=== PATIENT | female | born 1955 | race Caucasian/White ===

== ENCOUNTER 2021-06-07 14:48 | Emergency (ER) | payer MEDICARE, SELFPAY ==
[2021-06-07 15:11] VITALS: BP 151/91; PULSE 88; RESP 18; TEMP 36.9; O2SAT 95; BMI 41.8
--- NOTE | 2021-06-07 15:17 | XRR_ITS ---
PROCEDURE INFORMATION: Exam: XR Chest Exam date and time: 06/07/2021 3:17 PM Age: 66 years old Clinical indication: Cough; Additional info: Cough for 3 weeks TECHNIQUE: Imaging protocol: XR of the chest. Views: 2 views. Total images: 2 COMPARISON: No relevant prior studies available. FINDINGS: Lungs: No visible active interstitial or alveolar airspace disease. Pleural spaces: Unremarkable. No pleural effusion. No pneumothorax. Heart/Mediastinum: Cardiac structures and configuration within normal limits for age. Bones/joints: Unremarkable. Soft tissues: Heavy body habitus. XR/XR chest 2V* [id number] IMPRESSION: Nonacute.
[2021-06-07 16:04] VITALS: BP 117/76; PULSE 84; RESP 19; O2SAT 96
--- NOTE | 2021-06-07 16:26 | W.ED.SOB ---
HPI - SOB/Dyspnea General: Chief Complaint: Upper Respiratory Infection Stated Complaint: Cough that is worsening Time Seen by Provider: 06/07/21 16:25 History of Present Illness: HPI Narrative: Ms. Cameron is a 58-year-old lady with history of hypertension who presents emergency department cough and generalized malaise. She is visiting the area from out of town and staying with family. She has been in the area for approximately 5 weeks. About 3 weeks ago she has had gradual onset cough associated with minimal generalized malaise. Over the past 3 weeks this dry cough has persisted and become more frequent. She does have new smoke exposure. Intensity of cough is now moderate. The course has been worsening. There are no specific activities that make her cough worse. No other specific changes in health, associated symptoms, exacerbating, or alleviating factors identified. Review of Systems General: Reports: 10 or more systems reviewed and unremarkable except in HPI and below Physical Exam Narrative: EXAM NARRATIVE: GENERAL/CONSTITUTIONAL - well-appearing. No acute distress. Eyes - PERRL, no conjunctival injection ENMT - Atraumatic external nose and ears. Moist mucous membranes NECK - supple. trachea midline CARDIOVASCULAR - regular rate and rhythm. Peripheral pulses 2+ and equal RESPIRATORY -clear to auscultation bilaterally. No retractions or accessory muscle use. ABDOMEN/GI - Nontender, Nondistended. MSK - Extremities without obvious deformity or tenderness to palpation SKIN - Warm, Dry NEURO - alert and appropriately oriented. strength and sensation intact. Moves all extremities equally. PSYCH - Appropriate mood and affect Course ED course: - Patient was seen and evaluated by me at bedside - Patient placed on cardiac monitors, IV access obtained - Initial evaluation notable for no acute distress, nontoxic appearance. - Labs notable for no leukocytosis, mildly elevated creatinine with unclear baseline discussed with patient - Imaging notable for no lobar consolidation - Upon serial reexamination after treatment the patient was similar - Based on patient history, evaluation, labs, and imaging as interpreted the most likely cause of the patient's condition is cough, given duration of worsening may be atypical bacterial infection versus environmental exposure - The results of ED evaluation were discussed with the patient including prescriptions and/or symptomatic cares (if applicable) including appropriate and responsible use, followup plan, and return precautions. The patient verbalized understanding and felt safe for discharge. - Patient discharged in satisfactory condition. Vital Signs: Vital signs: Vital Signs Temperature 98.4 F 06/07/21 15:11 Pulse Rate 77 06/07/21 19:02 Respiratory Rate 17 06/07/21 19:02 Blood Pressure 118/73 06/07/21 19:02 Pulse Oximetry 96 06/07/21 19:02 MDM - SOB/Dyspnea Medical Records: Attestation: I reviewed the patient's medical records. Lab Data: Attestation: I reviewed the patient's lab results. Labs: Lab Results 06/07/21 06/07/21 06/07/21 16:59 16:59 16:59 WBC 4.9 10^3/uL 10^3/ uL (4.0-10.0) RBC 4.64 10^6/uL 10^6 /uL (4.1-5.3) Hgb 14.6 g/dL g/dL (11.5-15.3) Hct 44.2 % % (37.0-47.0) MCV 95.3 fl fl (81-99) MCH 31.5 pg pg (28.0-34.0) MCHC 33.0 g/dL g/dL (30.0-36.0) RDW 12.7 % % (12.1-15.1) Plt Count 197 10^3/cmm 10^3 /cmm (130-400) MPV 10.1 fL fL (7.4-10.4) Neut % (Auto) 58.0 % % Lymph % (Auto) 29.9 % % [place] % (Auto) 7.6 % % Eos % (Auto) 3.5 % % Baso % (Auto) 0.8 % % Neut # (Auto) 2.84 10^3/uL 10^3 /uL (1.8-7.7) Lymph # (Auto) 1.5 10^3/uL 10^3/ uL (0.8-4.8) [place] # (Auto) 0.4 10^3/uL 10^3/ uL (0.2-0.9) Eos # (Auto) 0.2 10^3/uL 10^3/ uL (0.0-0.8) Baso # (Auto) 0.0 10^3/uL 10^3/ uL (0.0-0.1) Nucleated RBC % (a uto) 0 % % Nucleated RBCs # 0.0 /100WBC /100W BC Sodium 141 mmol/L mmol/L (136-145) Potassium 3.5 mmol/L mmol/L (3.5-5.1) Chloride 104 mmol/L mmol/L (98-107) Carbon Dioxide 26 mmol/L mmol/L (22-29) Anion Gap 14.5 (5-19) BUN 19 mg/dL mg/dL (8-23) Creatinine 1.2 mg/dL H mg/dL (0.5-0.9) GFR Calculation 44.7 mL/min L mL/ min (90-130) Glucose 105 mg/dL mg/dL (65-115) Calculated Osmolal ity 295 mOsm/kg mOsm/ kg (285-295) Calcium 8.6 mg/dL mg/dL (8.5-10.5) Total Bilirubin 0.3 mg/dL mg/dL (0.15-1.2) AST 18 U/L U/L (0-32) ALT 15 U/L U/L (0-33) Alkaline Phosphata se 179 IU/L H IU/L (35-105) Troponin T Baselin e 6 ng/L ng/L (0-10) C-Reactive Protein 10.3 mg/L H mg/L (0.0-4.9) Total Protein 6.6 g/dL g/dL (6.6-8.7) Albumin 3.8 g/dL g/dL (3.5-5.2) Globulin 2.8 g/dL g/dL (1.3-4.6) Procalcitonin 0.06 ng/mL ng/mL (0-0.5) SARS-CoV-2 Ag (Rap id) 06/07/21 17:11 WBC RBC Hgb Hct MCV MCH MCHC RDW Plt Count MPV Neut % (Auto) Lymph % (Auto) [place] % (Auto) Eos % (Auto) Baso % (Auto) Neut # (Auto) Lymph # (Auto) [place] # (Auto) Eos # (Auto) Baso # (Auto) Nucleated RBC % (a uto) Nucleated RBCs # Sodium Potassium Chloride Carbon Dioxide Anion Gap BUN Creatinine GFR Calculation Glucose Calculated Osmolal ity Calcium Total Bilirubin AST ALT Alkaline Phosphata se Troponin T Baselin e C-Reactive Protein Total Protein Albumin Globulin Procalcitonin SARS-CoV-2 Ag (Rap id) Negative (Negative) EKG Data^: EKG 1: Attestation: I personally reviewed and interpreted this EKG as follows: EKG Interpretation Date: 06/07/21 EKG interpretation time: 16:53 Interpretation: Twelve-lead EKG shows a regular rhythm at a rate of 80. VT interval 193, QRS duration 86, QTc 461. Left axis deviation. Interpretation: Sinus rhythm, nonspecific ST segment abnormalities. Discharge Plan Discharge Patient Disposition: Home Clinical Impression: Cough Condition: Stable Prescriptions: New doxycycline hyclate 100 mg tablet 100 mg PO BID 7 Days Qty: 14 RF: 0 Discharge Orders: Discharge ED (Routine); Ordered 06/07/21 Ordered By: Frank Ayala Discharge Diet: Usual diet Discharge Activity: Resume usual activity Patient Instructions: Acute Cough (ED) Activity Restrictions/Additional Instructions: thank you for visiting the ED. you were seen and evaluated for cough. The exact cause of your symptoms is unclear however it may be related to atypical infection given the duration of symptoms. You will be given a prescription for antibiotics. As discussed, your creatinine was mildly elevated. Please ensure that you are staying hydrated. Please follow-up for repeat blood testing with your primary care provider. Please return to the emergency department for anything that you are concerned about and feel needs emergency department evaluation. Coding Level of Care Code ED Director Regulatory Compliance for [facility]
--- NOTE | 2021-06-07 16:37 | ECG_ITS ---
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1955 Requested By: Frank Ayala Order Number: [id number] Reading MD: WINDY ZAFAR Measurements Intervals [place] Rate: 80 P: 7 ID: [id number] QRS: -15 QRSD: 86 T: -10 QT: 399 QTc: 461 Interpretive Statements SINUS RHYTHM POSSIBLE LEFT ATRIAL ENLARGEMENT [-0.1mV P-WAVE IN V1/V2] LOW QRS VOLTAGE IN PRECORDIAL LEADS [QRS DEFLECTION < 1.0 mV IN CHEST LEADS] POSSIBLE ANTERIOR MYOCARDIAL INFARCTION , OF INDETERMINATE AGE [30 ms Q WAVE IN V3/V4, OR R < 0.2 mV IN V4] No previous ECG available for comparison Electronically Signed On 06-08-2021 20:20:17 CDT by WINDY ZAFAR [id number]
[2021-06-07 17:07] VITALS: PULSE 81; O2SAT 99
[2021-06-07 17:10] LABS: Basophils % 0.8 %; Eosinophils # 0.2 10^3/uL (0.0-0.8); Eosinophils % 3.5 %; Hematocrit 44.2 % (37.0-47.0); Hemoglobin 14.6 g/dL (11.5-15.3); Lymphocytes # 1.5 10^3/uL (0.8-4.8); Lymphocytes % 29.9 %; Mean Corpuscular Hemoglobin 31.5 pg (28.0-34.0); Mean Corpuscular Volume 95.3 fl (81-99); Mean Platelet Volume 10.1 fL (7.4-10.4); Monocytes # 0.4 10^3/uL (0.2-0.9); Monocytes % 7.6 %; Neutrophils # 2.84 10^3/uL (1.8-7.7); Nucleated Red Blood Cells % 0 %; Platelet Count 197 10^3/cmm (130-400); Red Blood Count 4.64 10^6/uL (4.1-5.3); Red Cell Distribution Width 12.7 % (12.1-15.1); White Blood Count 4.9 10^3/uL (4.0-10.0)
[2021-06-07 17:47] LABS: Troponin(5th) Baseline 6 ng/L (0-10)
[2021-06-07 17:50] LABS: Alanine Aminotransferase 15 U/L (0-33); Albumin Level 3.8 g/dL (3.5-5.2); Alkaline Phosphatase 179 IU/L (35-105); Anion Gap 14.5 (5-19); Aspartate Amino Transferase 18 U/L (0-32); Blood Urea Nitrogen 19 mg/dL (8-23); C Reactive Protein 10.3 mg/L (0.0-4.9); Calcium 8.6 mg/dL (8.5-10.5); Carbon Dioxide 26 mmol/L (22-29); Chloride 104 mmol/L (98-107); Globulin 2.8 g/dL (1.3-4.6); Glomerular Filtration Rate 44.7 mL/min (90-130); Glucose 105 mg/dL (65-115); Osmolality Calculated 295 mOsm/kg (285-295); Potassium 3.5 mmol/L (3.5-5.1); Sodium 141 mmol/L (136-145); Total Bilirubin 0.3 mg/dL (0.15-1.2); Total Protein 6.6 g/dL (6.6-8.7)
[2021-06-07 17:57] LABS: Procalcitonin 0.06 ng/mL (0-0.5)
[2021-06-07 17:59] LABS: SARS Covid-2 Antigen Negative (Negative)
[2021-06-07 19:02] VITALS: BP 118/73; PULSE 77; RESP 17; O2SAT 96
== END 2021-06-07 19:03 | disposition home or self-care (01) ==
PROVIDERS: Emergency Provider Emergency Medicine
DX: R05.9 Cough, unspecified (principal); Z20.822 Contact with and (suspected) exposure to COVID-19
CPT/HCPCS: 71046; 80053; 84145; 84484; 85025; 86140; 87426; 93005; 99283

== ENCOUNTER 2023-06-09 09:22 | Emergency (ER) | payer MEDICARE, MEDICAID, SELFPAY ==
[2023-06-09 09:22] VITALS: BP 240/104; PULSE 67; RESP 17; TEMP 36.8; O2SAT 97; BMI 41.4
--- NOTE | 2023-06-09 09:27 | ECG_ITS ---
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 Measurements Intervals [place] Rate: 66 P: -32 PA: 144 QRS: -14 QRSD: 89 T: -5 QT: 406 QTc: 426 Interpretive Statements SINUS RHYTHM LOW QRS VOLTAGE IN PRECORDIAL LEADS [QRS DEFLECTION < 1.0 mV IN CHEST LEADS] POSSIBLE ANTERIOR MYOCARDIAL INFARCTION , PROBABLY OLD [30 ms Q WAVE IN V3/V4, OR R < 0.2 mV IN V4] Compared to ECG 06/07/2021 16:47:08 No significant changes Electronically Signed On 06-09-2023 15:55:41 CDT by Michi Lozada M.D. [id number]
--- NOTE | 2023-06-09 09:27 | XR_ITS ---
WS: [id number] EXAMINATION: XR chest 1V portable [id number] REASON FOR EXAM: chest pain COMPARISON: 06/12/2021 ORDER DATE: 06/09/2023 9:29 AM TECHNIQUE: A single, portable frontal chest x-ray was obtained. X-RAY FINDINGS: The lungs are clear. Pleural spaces are clear. No pleural effusions or pneumothorax. There is moderate atherosclerotic aortic change. Soft tissue and osseous structures are unremarkable. No tubes or lines are present. IMPRESSION: Unremarkable frontal portable chest x-ray.
--- NOTE | 2023-06-09 09:41 | W.ED.CHESTPA ---
HPI - Chest Pain General: Chief Complaint: Chest Pain Stated Complaint: chest pain Time Seen by Provider: 06/09/23 09:25 Source: patient Mode of arrival: ambulatory History of Present Illness: 68-year-old female presents emergency room complaint of chest pain that woke her up from her sleep. She also reports having had a sensation of racing heart rate and some shortness of breath. All of this has resolved now. States that he woke up around 2 to 3 AM this morning lasted for about an hour and then she was able to fall back to sleep is resolved and not recurred. 5 to 7 years ago she had a nuclear stress test in another state that she relates was normal she not had any further testing since that time. MD complaint: chest pain Onset (ago): hour(s) Timing of current episode: episodic Onset: during rest Pain location: left chest Relieving factors: nothing Exacerbating factors: nothing Associated symptoms: Deny abdominal pain, diaphoresis, dyspnea, fever(s), leg edema, nausea, palpitations, sense of impending doom, syncope or vomiting Review of Systems Const: Denies: fever(s) or diaphoresis ENMT: Denies: throat pain, ear or mastoid pain, nasal discharge or nasal congestion Card: Denies: palpitations or syncope Resp: Denies: dyspnea GI: Denies: abdominal pain, nausea or vomiting : Denies: flank pain, difficulty voiding, dysuria, urinary frequency or urinary urgency Skin/Breast: Denies: rash or pruritus Physical Exam Const: COMMON NORMALS: no acute distress GENERAL APPEARANCE: cooperative and comfortable ORIENTATION/CONSCIOUSNESS: Yes awake, Yes oriented to person, Yes oriented to place and Yes oriented to time HENMT: COMMON NORMALS: normocephalic, atraumatic and hearing grossly normal bilaterally HEAD & SCALP: normocephalic and atraumatic Resp: COMMON NORMALS: normal respiratory effort, No retractions, No use of accessory muscles and clear to auscultation bilaterally AUSCULTATION: clear to auscultation bilaterally Cardio: COMMON NORMALS: regular rate, regular rhythm and No murmurs present (Cardio) RATE: regular rate RHYTHM: regular rhythm GI: COMMON NORMALS: Soft to palpation and No hepatosplenomegaly present AUSCULTATION: Yes normoactive bowel sounds PALPATION: Yes Soft to palpation, No Tenderness to palpation present (GI), No Guarding due to palpation present (GI) and Yes No hepatosplenomegaly present Extremity: COMMON NORMALS: normal to inspection, capillary refill normal, no clubbing, cyanosis or edema, no calf tenderness and no pedal edema Neuro: SENSORIUM/ORIENTATION: Yes oriented to person, Yes oriented to place and Yes oriented to time Skin: COMMON NORMALS: no rashes or lesions noted GENERAL SKIN EXAM: no rashes or lesions noted Course Vital Signs: Vital signs: Vital Signs Temperature 98.2 F 06/09/23 09:22 Pulse Rate 56 L 06/09/23 10:53 Respiratory Rate 20 H 06/09/23 10:53 Blood Pressure 180/95 06/09/23 10:53 Pulse Oximetry 95 06/09/23 10:53 Oxygen Delivery Me thod Room Air 06/09/23 10:53 MDM - Chest Pain Medical Decision Making EKG does not show any acute ST elevation troponin is trending normal. Chest x-ray normal discharge home blood pressure is elevated we will start her on Imdur 30 mg daily a baby aspirin daily and set up for an outpatient Lexiscan sestamibi stress test return if has further symptoms. Medical Records I reviewed the patient's medical records. Lab Data I reviewed the patient's lab results. 06/09/23 09:46 06/09/23 09:46 Laboratory Results WBC 4.47 10^3/uL (3.29-11.43) 06/09/23 09:46 RBC 5.06 10^6/uL (3.85-5.65) 06/09/23 09:46 Hgb 15.60 g/dL (11.27-16.99) 06/09/23 09:46 Hct 46.3 % (36-47) 06/09/23 09:46 MCV 91.5 fl (85-98) 06/09/23 09:46 MCH 30.8 pg (27-33) 06/09/23 09:46 MCHC 33.7 g/dL (30-55) 06/09/23 09:46 RDW 12.8 % (12.1-15.1) 06/09/23 09:46 Plt Count 194 10^3/cmm (157-399) 06/09/23 09:46 MPV 9.7 fL (7.4-10.4) 06/09/23 09:46 Neut % (Auto) 55.3 % 06/09/23 09:46 Lymph % (Auto) 36.2 % 06/09/23 09:46 [place] % (Auto) 4.0 % 06/09/23 09:46 Eos % (Auto) 3.8 % 06/09/23 09:46 Baso % (Auto) 0.7 % 06/09/23 09:46 Neut # (Auto) 2.47 10^3/uL (1.8-7.7) 06/09/23 09:46 Lymph # (Auto) 1.6 10^3/uL (0.8-4.8) 06/09/23 09:46 [place] # (Auto) 0.2 10^3/uL (0.2-0.9) 06/09/23 09:46 Eos # (Auto) 0.2 10^3/uL (0.0-0.8) 06/09/23 09:46 Baso # (Auto) 0.0 10^3/uL (0.0-0.1) 06/09/23 09:46 Nucleated RBC % (auto) 0 % 06/09/23 09:46 Nucleated RBCs # 0.0 /100WBC 06/09/23 09:46 Sodium 143 mmol/L (136-145) 06/09/23 09:46 Potassium 4.4 mmol/L (3.5-5.1) 06/09/23 09:46 Chloride 108 mmol/L (98-107) H 06/09/23 09:46 Carbon Dioxide 25 mmol/L (22-29) 06/09/23 09:46 Anion Gap 14.4 (5-19) 06/09/23 09:46 BUN 17 mg/dL (8-23) 06/09/23 09:46 Creatinine 0.7 mg/dL (0.5-0.9) 06/09/23 09:46 GFR Calculation 82.7 mL/min (90-130) L 06/09/23 09:46 Glucose 94 mg/dL (65-115) 06/09/23 09:46 Calculated Osmolality 297 mOsm/kg (285-295) H 06/09/23 09:46 Calcium 8.9 mg/dL (8.5-10.5) 10/05/23 09:46 Total Bilirubin 0.6 mg/dL (0.15-1.2) 06/09/23 09:46 AST 19 U/L (0-32) 06/09/23 09:46 ALT 13 U/L (0-33) 06/09/23 09:46 Alkaline Phosphatase 201 U/L (35-105) H 06/09/23 09:46 Troponin T Baseline 7 ng/L (0-10) 06/09/23 09:46 Troponin T 120 Minute 6.94 ng/L (0-10) 06/09/23 11:25 Delta Troponin T -0.06 ABS# (0-10) L 06/09/23 11:25 Total Protein 7.1 g/dL (6.6-8.7) 06/09/23 09:46 Albumin 4.2 g/dL (3.5-5.2) 06/09/23 09:46 Globulin 2.9 g/dL (1.3-4.6) 06/09/23 09:46 All radiology interpretation(s) finalized by discharge Discharge Plan Discharge Patient Disposition: Home Clinical Impression: Atypical chest pain Condition: Stable Prescriptions: New aspirin 81 mg tablet,delayed release (DR/EC) 81 mg PO DAILY Qty: 30 0RF isosorbide mononitrate 30 mg tablet extended release 24 hr 30 mg PO DAILY Qty: 30 0RF No Action lisinopril 20 mg tablet 20 mg PO DAILY Tylenol Arthritis 650 mg Tablet Extended Release 1,300 mg PO Q12H PRN (Reason: Pain) pantoprazole 40 mg tablet,delayed release (DR/EC) 40 mg PO DAILY Stool Softener 50 mg Capsule 50 mg PO DAILY Discharge Orders: Discharge ED (Routine); Ordered 06/09/23 Ordered By: Brenton Durant Referrals: Hailee Leon DO [Primary Care Provider] - Discharge Diet: Usual diet Discharge Activity: Limit activity as instructed Patient Instructions: Opioid Safety, Pain Management Activity Restrictions/Additional Instructions: Avoid exertional activities. Start Imdur 30 mg daily baby aspirin daily Case management make arrangements for an outpatient Lexiscan sestamibi stress test. Coding Level of Care Code ED Gill Box Tender for [facility]
[2023-06-09 09:59] LABS: Basophils % 0.7 %; Eosinophils # 0.2 10^3/uL (0.0-0.8); Eosinophils % 3.8 %; Hematocrit 46.3 % (36-47); Lymphocytes # 1.6 10^3/uL (0.8-4.8); Lymphocytes % 36.2 %; Mean Corpuscular HGB Conc 33.7 g/dL (30-55); Mean Corpuscular Hemoglobin 30.8 pg (27-33); Mean Corpuscular Volume 91.5 fl (85-98); Mean Platelet Volume 9.7 fL (7.4-10.4); Monocytes # 0.2 10^3/uL (0.2-0.9); Neutrophils # 2.47 10^3/uL (1.8-7.7); Neutrophils % 55.3 %; Nucleated Red Blood Cells % 0 %; Platelet Count 194 10^3/cmm (157-399); Red Blood Count 5.06 10^6/uL (3.85-5.65); Red Cell Distribution Width 12.8 % (12.1-15.1); White Blood Count 4.47 10^3/uL (3.29-11.43)
[2023-06-09] MEDS: aspirin 81 mg Chew Tablet 324 MG PO (09:59)
[2023-06-09 10:20] LABS: Alanine Aminotransferase 13 U/L (0-33); Albumin Level 4.2 g/dL (3.5-5.2); Alkaline Phosphatase 201 U/L (35-105); Aspartate Amino Transferase 19 U/L (0-32); Blood Urea Nitrogen 17 mg/dL (8-23); Calcium 8.9 mg/dL (8.5-10.5); Carbon Dioxide 25 mmol/L (22-29); Chloride 108 mmol/L (98-107); Globulin 2.9 g/dL (1.3-4.6); Glomerular Filtration Rate 82.7 mL/min (90-130); Glucose 94 mg/dL (65-115); Osmolality Calculated 297 mOsm/kg (285-295); Sodium 143 mmol/L (136-145); Total Bilirubin 0.6 mg/dL (0.15-1.2); Total Protein 7.1 g/dL (6.6-8.7)
[2023-06-09 10:25] LABS: Anion Gap 14.4 (5-19); Potassium 4.4 mmol/L (3.5-5.1)
[2023-06-09 10:29] LABS: Troponin(5th) Baseline 7 ng/L (0-10)
[2023-06-09 10:53] VITALS: BP 180/95; PULSE 56; RESP 20; O2SAT 95
[2023-06-09] MEDS: amlodipine 5 mg Tablet PO (10:54)
[2023-06-09] MEDS: lisinopril 20 mg Tablet PO (10:54)
[2023-06-09 12:11] LABS: Troponin 5 2HR 6.94 ng/L (0-10); Troponin 5 2HR Delta -0.06 ABS# (0-10)
== END 2023-06-09 12:31 | disposition home or self-care (01) ==
PROVIDERS: Emergency Provider Family Medicine; PCP Family Medicine
DX: R07.89 Other chest pain (principal)
CPT/HCPCS: 36415; 71045; 80053; 84484; 85025; 93005; 99285

== ENCOUNTER 2023-06-27 08:34 | Outpatient (CLI) | payer MEDICARE, MEDICAID, SELFPAY ==
--- NOTE | 2023-06-27 | ECG_ITS ---
[facility] Test Date: 2023-06-27 Pat Name: Sarah Perry Department: Room: Gender: Female Companion: Deepti Walsh : 1955 Requested By: Brenton Parada Order Number: [id number] Claude MD: Kamila Anderson M.D. Interpretive Statements NAME OF STUDY: LEXISCAN SESTAMIBI STRESS TEST INDICATION: Atypical Chest Pain PROCEDURE: At the baseline, the blood pressure was 189/85 mmHg with a heart rate of 63 bpm. The electrocardiogram showed sinus rhythm, normal axis with normal ST and T's. ??? The Lexiscan was infused over a period of 20 seconds. A total of 0.4 milligrams of Lexiscan was infused. The stress phase was continued for a total of 5 minutes. Heart rate at the end of the stress phase was 90 beats per min with a blood pressure of 155/89 mmHg. The EKG at the peak infusion revealed sinus rhythm with no significant ST-T wave changes. ??? Sestamibi was injected 20 seconds after the Lexiscan infusion. ??? Blood pressure at the end of the recovery phase was 148 over 92 mm Hg with a heart rate of 91 beats per minute. ??? CONCLUSION: 1. Normal EKG response to LexiScan infusion. 2. No LexiScan induced chest pain or cardiac arrhythmia. 3. Normal blood pressure and heart rate response. 4. Sestamibi/sestamibi perfusion scan pending; see separate report. Electronically Signed On 06-30-2023 16:57:14 CDT by Kamila Anderson M.D. [id number]
[2023-06-27 09:07] VITALS: BMI 57.7
--- NOTE | 2023-06-27 09:08 | NMCV_ITS ---
NM junior perf SPECT r/s* [id number] Sarah Perry Age: 68 Gender: F : 1955 Exam Date: 06/27/2023 09:08 Ordering Phys: Brenton Durant DO Technologist: CR Srivastava Exam Location: [facility] Indications: CHEST PAIN STRESS TEST Please see separate stress test report in [facility] for full findings IMAGE PROTOCOL Rest/Stress 1 Lexiscan Day Radiopharmaceutical Dose (mCi) Administration Site Administered by Rest: Tc-99m 8.5 IV CR Srivastava Sestamibi Stress:Tc-99m 27.4 IV CR [place] Sestamibi Rest: 27-Jun-2023 60 Discovery 630 Stress: 27-Jun-2023 30 Discovery 630 0.4mg Lexiscan. Images obtained in supine and prone position. SPECT RESULTS Technical Quality: Excellent Raw Data Analysis: Normal Image Corrections: No attenuation or motion correction applied Summed Stress Score: 0 Summed Rest Score: 0 Summed Difference Score: 0 PERFUSION FINDINGS SPECT images demonstrate homogeneous tracer distribution throughout the myocardium. FUNCTIONAL RESULTS (calculated via Gated SPECT) Stress Image LV EF (%): 75 Stress EDV (mL):56 TID: 0.85 Stress ESV (mL):14 FUNCTIONAL FINDINGS: The left ventricle is normal in size. Transient Ischemia Dilatation of 0.85. The left ventricular ejection fraction is normal with a value of 75%. There is normal left ventricular wall thickening. Normal end-diastolic and end-systolic volumes. IMPRESSIONS 1. Myocardial perfusion imaging is normal. 2. Overall left ventricular systolic function is normal without regional wall motion abnormalities, LVEF=75%. 3. EKG portion of the study will be reported separately. 4. Scan indicates low risk for cardiac events. Kamila Anderson MD (Electronically Signed) Final Date: 28 June 2023 17:15 S
[2023-06-27] MEDS: regadenoson 0.4 Mg/5 ml Syringe IVP (11:42)
[2023-06-27 11:50] VITALS: BP 148/92; PULSE 88
== END 2023-06-27 08:35 | disposition home or self-care (01) ==
LOC: CDL 08:34
PROVIDERS: PCP Family Medicine; Visit Provider Family Medicine
DX: R07.89 Other chest pain (principal)
CPT/HCPCS: 36415; 78452; 93017; 96374; A9500; J2785

== ENCOUNTER → 2023-11-16 10:52 | Outpatient (BNVA) | payer MEDICARE, MEDICAID, SELFPAY | PROVIDERS: PCP Family Medicine; Referring Provider Family Medicine; Visit Provider Specialist | DX: M25.561 Pain in right knee (principal); M25.562 Pain in left knee; G89.29 Other chronic pain; Z96.653 Presence of artificial knee joint, bilateral | CPT/HCPCS: 73560; 73565; 99204 ==

== ENCOUNTER → 2023-11-17 10:40 | Outpatient (BNVA) | payer MEDICARE, MEDICAID, SELFPAY | PROVIDERS: PCP Family Medicine; Visit Provider Family Medicine | DX: Z13.6 Encounter for screening for cardiovascular disorders; I10 Essential (primary) hypertension | CPT/HCPCS: 80053; 80061; 81003; 82043; 87086 ==

== ENCOUNTER 2023-11-30 13:14 | Outpatient (CLI) | payer MEDICARE, MEDICAID, SELFPAY ==
--- NOTE | 2023-11-30 13:30 | XR_ITS ---
WS: [id number] SCREENING DEXA SCAN [place] CLINICAL INFORMATION: postmenopausal COMPARISON: None. FINDINGS: The L1-L4 bone mineral density measures 1.65. This corresponds to a T score score of 3.7 and Z score of 4.3. Left femoral neck bone mineral density measures 0.937 g/cm2. This corresponds to a T score of -0.6 an d Z score of 0.2. Right femoral neck bone mineral density measures 1.002 g/cm2. This corresponds to a T score 0.0of and Z score of 0.7. Mean femoral neck bone mineral density measures 0.970 g/cm2. This corresponds to a T score of -0.3 an d Z score of 0.4. IMPRESSION: Normal bone mineralization lumbar spine and femoral necks.. Patient's FRAX calculated 10 year probability for major osteoporotic fracture is 8.3% and osteoporoti c hip fracture is 1.0%.
--- NOTE | 2023-11-30 14:00 | MM_ITS ---
WS: [id number] BILATERAL 3D TOMOSYNTHESIS DIGITAL SCREENING MAMMOGRAPHY WITH CAD CLINICAL INFORMATION: screening HISTORY: Screening mammogram. No current complaints. COMPARISON: 2019 TECHNIQUE: Bilateral CC and MLO views. FINDINGS: Scattered fibroglandular densities bilaterally. Increasing RIGHT subareolar opacity. Recommend furthe r evaluation with RIGHT diagnostic mammography and ultrasound. Punctate and lucent centered calcifica tions. Unremarkable LEFT breast. IMPRESSION: MM/[place] [id number] BI-RADS: 0-Incomplete: Need additional imaging evaluation FOLLOW UP: Need Additional Imaging Recommend RIGHT breast diagnostic mammography and ultrasound.
== END 2023-11-30 13:15 | disposition home or self-care (01) ==
LOC: RAD 13:14
PROVIDERS: PCP Family Medicine; Visit Provider Family Medicine
DX: Z12.31 Encounter for screening mammogram for malignant neoplasm of breast (principal); R92.323 Mammographic fibroglandular density, bilateral breasts; Z13.820 Encounter for screening for osteoporosis; Z78.0 Asymptomatic menopausal state
CPT/HCPCS: 77063; 77067; 77080

== ENCOUNTER 2023-12-02 09:21 | Outpatient (CLI) | payer MEDICARE, MEDICAID, SELFPAY ==
--- NOTE | 2023-12-02 09:30 | NM_ITS ---
WS: [id number] NUCLEAR MEDICINE WHOLE BODY BONE SCAN HISTORY: knee pain COMPARISON: Radiograph 11/16/2023 TECHNIQUE: The patient was injected with 24.9 mCi of Technetium 99m HDP and serial whole-body scintig enma have been performed with anterior and posterior images. Static imaging over the cervical spine a nd knees. Status post bilateral knee replacements. There is a small amount of increased uptake associated with the hardware. Mild increased uptake at the AC joints and at the ankles and feet. These are all changes of osteoarth ritis. No suspicious areas of uptake within the spine or in the pelvis. Normal soft tissue and renal uptake. IMPRESSION: 1. Status post bilateral knee replacements. No suspicious areas of increased uptake within the knees . 2. Degenerative osteoarthritis at the AC joint, ankles and feet.
== END 2023-12-02 09:22 | disposition home or self-care (01) ==
LOC: RAD 09:21
PROVIDERS: PCP Family Medicine; Visit Provider Specialist
DX: M25.562 Pain in left knee (principal)
CPT/HCPCS: 78306; A9561

== ENCOUNTER 2023-12-26 14:35 | Outpatient (CLI) | payer MEDICARE, MEDICAID, SELFPAY ==
--- NOTE | 2023-12-26 15:00 | MM_ITS ---
WS: [id number] RIGHT 3D TOMOSYNTHESIS DIGITAL MAMMOGRAPHY WITH CAD CLINICAL INFORMATION: abnormal mammogram HISTORY: Additional views COMPARISON: 11/30/2023 TECHNIQUE: 3 views of the right breast were obtained. FINDINGS: Scattered fibroglandular densities of the right breast. Again seen is slightly lobulated asymmetric d ensity subareolar RIGHT breast. Ultrasound is pending. ULTRASOUND BREAST RIGHT TECHNIQUE: Ultrasound right breast focused area of concern. CLINICAL INFORMATION: abnormal mammogram FINDINGS: Ultrasound subareolar RIGHT breast in the area of concern. Incidental ductal ectasia in the area of c oncern subareolar RIGHT breast. No intraductal lesions. No suspicious lesions to target for biopsy. F indings are benign. Recommend return to annual screening mammography. IMPRESSION: MM/[place] [id number] BI-RADS: 2-Benign FOLLOW UP: 1 Year Follow-up Recommend return to annual screening mammography.
--- NOTE | 2023-12-26 15:30 | US_ITS ---
WS: [id number] RIGHT 3D TOMOSYNTHESIS DIGITAL MAMMOGRAPHY WITH CAD CLINICAL INFORMATION: abnormal mammogram HISTORY: Additional views COMPARISON: 11/30/2023 TECHNIQUE: 3 views of the right breast were obtained. FINDINGS: Scattered fibroglandular densities of the right breast. Again seen is slightly lobulated asymmetric d ensity subareolar RIGHT breast. Ultrasound is pending. ULTRASOUND BREAST RIGHT TECHNIQUE: Ultrasound right breast focused area of concern. CLINICAL INFORMATION: abnormal mammogram FINDINGS: Ultrasound subareolar RIGHT breast in the area of concern. Incidental ductal ectasia in the area of c oncern subareolar RIGHT breast. No intraductal lesions. No suspicious lesions to target for biopsy. F indings are benign. Recommend return to annual screening mammography. IMPRESSION: US/US breast RT limited* [id number] BI-RADS: 2-Benign FOLLOW UP: 1 Year Follow-up Recommend return to annual screening mammography.
== END 2023-12-26 14:36 | disposition home or self-care (01) ==
LOC: RAD 14:35
PROVIDERS: PCP Family Medicine; Visit Provider Family Medicine
DX: R92.8 Other abnormal and inconclusive findings on diagnostic imaging of breast (principal); N60.41 Mammary duct ectasia of right breast
CPT/HCPCS: 76642; 77061; G0279

== ENCOUNTER → 2024-02-29 14:06 | Outpatient (BNVA) | payer MEDICARE, MEDICAID, SELFPAY | PROVIDERS: PCP Family Medicine; Referring Provider Family Medicine; Visit Provider Surgery | DX: K21.9 Gastro-esophageal reflux disease without esophagitis (principal) | CPT/HCPCS: 99204 ==

== ENCOUNTER 2024-04-17 11:01 | Day surgery (SDC) | payer MEDICARE, MEDICAID, SELFPAY ==
--- NOTE | 2024-04-17 11:15 | W.PM.OPSFHP ---
Same Day Surgery H&P Indication for Procedure/HPI DATE OF PROCEDURE: April 17, 2024 CHIEF COMPLAINT/INDICATIONFOR SURGICAL PROCEDURE: GERD PREOP DIAGNOSIS: GERD PLANNED PROCEDURE: Operation Date: 04/17/24 12:35 Proposed Procedures p EGD 77879, K21.9(Not Applicable) - Fady Soares MD Medications/Allergies* Home Medications Medication Instructions Recorded Confirmed Type acetaminophen 650 mg 1,300 mg PO Q12H PRN Pain 06/09/23 04/12/24 History tablet,extended release docusate sodium 50 mg capsule 50 mg PO DAILY 06/09/23 04/12/24 History (Stool Softener) Allergies/Adverse Reactions Allergy/AdvReac Type Severity Reaction Status Date / Time adhesive Allergy ALGY-Bliste Verified 03/21/24 13:15 r oxycodone Allergy ADR-Anxiety Verified 03/21/24 13:15 Pertinent History/Comorbid Conditions* Medical History (Updated 03/21/24 @ 12:43 by Cuauhtemoc Baxter MD) Bilateral knee pain GERD (gastroesophageal reflux disease) Benign essential HTN Surgical History (Updated 06/23/23 @ 09:52 by Hailee Leon DO) Previous section History of cholecystectomy History of hysterectomy Endometrial CA. No longer follows with oncology History of tonsillectomy History of bilateral knee replacement Family History (Updated 06/23/23 @ 09:35 by Alexandria Pan LPN) Father Mother Carotid artery disease Father Stroke Mother Social History Smoking and tobacco/nicotine status: former use of tobacco/nicotine Alcohol intake: current Alcohol intake frequency: holidays/special occasions only Household members: children Highest education level completed: Some College, No Degree service: No Current occupational status: unemployed Previous occupational history: Office and composition worker Pertinent Exam Findings alert, oriented x 3, clear to auscultation bilaterally and regular rate & rhythm Recommendations Surgery/Procedure today Coding Level of Care Code Acute Code for Chg Fwd
[2024-04-17 11:16] VITALS: BP 142/94; PULSE 60; RESP 18; TEMP 36.2; O2SAT 96; BMI 38.5
[2024-04-17] MEDS: sodium chloride 0.9% 1,000 ML 30 ML IV (11:21)
--- NOTE | 2024-04-17 12:03 | P.ANESASSM_ITS ---
Pre-Anesthetic Assessment Height/Weight: Height 1.57 m Weight 95.708 kg Temp Pulse Resp BP Pulse Ox O2 Del Method 97.1 F L 60 18 142/94 96 Room Air 04/17/24 11:16 04/17/24 11:16 04/17/24 11:16 04/17/24 11:16 04/17/24 11:16 04/17/24 11:16 Preop Diagnosis: GERD Operation Date: 04/17/24 12:35 Proposed Procedures p EGD 64018, K21.9(Not Applicable) - Fady Soares MD Was Beta Micha taken within 24 hours: N/A Was Clonidine taken within 24 hours: N/A Last intake: Intake Last Liquid Date 04/16/24 Last Liquid Time 21:00 Last Solid Date 04/16/24 Last Solid Time 19:30 Social No alcohol and No tobacco Exam alert, oriented x 3, clear to auscultation bilaterally and regular rate & rhythm Airway Submandibular: within normal limits Cervical ROM: within normal limits Mallampati: Class II Dentition: false Comments: Comments: Upper dentures History/ROS No significant history except as noted and No significant complaints Pulmonary None reported CV/HEM Hypertension None reported Hepatic None reported GI Gastroesophageal Reflux Disease Musc/skel Osteoarthritis/DJD Neuropsych None reported Anesthetic Plan ASA status: 2 Anesthesia: Anesthesia Evaluation and MAC Risk of > 500 ml blood loss (7ml/kg in children): No Medications/Allergies Home Medications Medication Instructions Recorded Confirmed Last Taken Type acetaminophen 650 mg 1,300 mg PO Q12H PRN Pain 06/09/23 04/12/24 04/16/24 History tablet,extended release docusate sodium 50 mg capsule 50 mg PO DAILY 06/09/23 04/12/24 04/16/24 History (Stool Softener) oxybutynin chloride 5 mg tablet 5 mg PO BID #180 tabs 01/13/24 04/12/24 04/16/24 Rx pantoprazole 40 mg tablet,delayed 40 mg PO BID #180 tabs 03/27/24 04/12/24 04/16/24 Rx release fluticasone propionate 50 1 spray intranasal DAILY PRN nasal 04/13/24 04/17/24 Unknown Rx mcg/actuation nasal congestion 90 days #16 grams spray,suspension (Flonase Allergy Relief) lisinopril 20 mg tablet 20 mg PO DAILY #90 tabs 04/13/24 04/17/24 04/16/24 Rx tramadol 50 mg tablet 50 mg PO BID PRN pain #60 tabs 04/13/24 04/17/24 04/15/24 Rx Allergies Allergy/AdvReac Type Severity Reaction Status Date / Time adhesive Allergy ALGY-Bliste Verified 03/21/24 13:15 r oxycodone Allergy ADR-Anxiety Verified 03/21/24 13:15 Current Medications Generic Name Dose Route Start Last Admin Trade Name Freq PRN Reason Stop Dose Admin Sodium Chloride 1,000 mls @ 30 mls/hr 04/17/24 11:15 04/17/24 11:21 Sodium Chloride 0.9% IV 04/18/24 11:14 30 mls/hr .Q24H ZINA Administration PFSH Anesthesia Medical History (Updated 03/21/24 @ 12:43 by Cuauhtemoc Baxter MD) Bilateral knee pain GERD (gastroesophageal reflux disease) Benign essential HTN Surgical History Previous section History of cholecystectomy History of hysterectomy Endometrial CA. No longer follows with oncology History of tonsillectomy History of bilateral knee replacement Family History Father Carotid artery disease Mother Stroke Social History Smoking and tobacco/nicotine status: former use of tobacco/nicotine Alcohol intake: current Alcohol intake frequency: holidays/special occasions on ly Household members: children Highest education level completed: Some College, No Degree service: No Current occupational status: unemployed Previous occupational history: Office and farmworker diversified crops Data Anesthesia Cardiac Studies: Sestamibi Stress Test (Cardiology) 06/27
[2024-04-17 12:57] VITALS: BP 126/76; PULSE 75; RESP 16; TEMP 36.4; O2SAT 98
[2024-04-17 13:14] VITALS: BP 136/78; PULSE 82; RESP 18; O2SAT 99
--- NOTE | 2024-04-17 13:25 | ANE.PACU2 ---
Inpatient post-anesthesia follow up: Airway intact: Yes Vital signs: Temperature 97.6 F Pulse Rate 82 Respiratory Rate 18 Blood Pressure 136/78 Pulse Oximetry 99 Oxygen Delivery Me thod Room Air Oxygen Flow Rate Fraction of Inspir ed Oxygen Hydration adequate: Yes Nausea and vomiting: No Pain level: 1 Mental status: Baseline
== END 2024-04-17 13:26 | disposition home or self-care (01) ==
PROVIDERS: PCP Family Medicine Adult Medicine; Visit Provider Surgery
PROC: 0DJ08ZZ Inspection of Upper Intestinal Tract, Via Natural or Artificial Opening Endoscopic (ICD-10-PCS; CPT 43235; principal; 2024-04-17 12:35)
DX: K21.9 Gastro-esophageal reflux disease without esophagitis (principal); I10 Essential (primary) hypertension; Z87.891 Personal history of nicotine dependence; K44.9 Diaphragmatic hernia without obstruction or gangrene; K29.70 Gastritis, unspecified, without bleeding
CPT/HCPCS: 43239; 88305; J2704; J7030

== ENCOUNTER → 2024-05-04 12:17 | Outpatient (BNVA) | payer MEDICARE, MEDICAID, SELFPAY | PROVIDERS: PCP Family Medicine Adult Medicine; Visit Provider Surgery | DX: K44.9 Diaphragmatic hernia without obstruction or gangrene (principal); Z09 Encounter for follow-up examination after completed treatment for conditions other than malignant neoplasm | CPT/HCPCS: 99213 ==

== ENCOUNTER 2024-05-15 08:44 | Outpatient (CLI) | payer MEDICARE, MEDICAID, SELFPAY ==
--- NOTE | 2024-05-15 09:15 | FL_ITS ---
WS: [id number] FL barium swallow [id number] REASON FOR EXAM: Hiatal hernia with reflux. FLUOROSCOPY TIME: 2min [id number] # OF SPOT FILMS: Multiple FINDINGS: The patient was examined in standing AP and lateral projections, prone CORNELL, and supine positions. The swallowing of barium was monitored fluoroscopically from the oropharynx to the fundus of the stomach . The cervical esophagus was normal. The thoracic esophagus demonstrated intermittent lower esophageal spasm with retention of contrast an d a mildly dilated esophagus. There were infrequent mild episodes of tertiary contractions. There is a large hiatal hernia without stricture. There was significant gastroesophageal reflux into the upper esophagus below the sternal notch. FL/FL barium swallow [id number] IMPRESSION: Mild esophageal dysmotility as above. Large hiatal hernia with significant reflux.
== END 2024-05-15 08:45 | disposition home or self-care (01) ==
LOC: RAD 08:44
PROVIDERS: PCP Family Medicine Adult Medicine; Visit Provider Surgery
DX: K44.9 Diaphragmatic hernia without obstruction or gangrene (principal)
CPT/HCPCS: 74220

== ENCOUNTER → 2024-05-16 15:22 | Outpatient (BNVA) | payer MEDICARE, MEDICAID, SELFPAY | PROVIDERS: PCP Family Medicine Adult Medicine; Visit Provider Nurse Practitioner | DX: M25.562 Pain in left knee (principal); G89.29 Other chronic pain; Z96.653 Presence of artificial knee joint, bilateral | CPT/HCPCS: 73560; 73565; 99214 ==

== ENCOUNTER 2024-05-28 08:47 | Outpatient (RCR) | payer MEDICARE, MEDICAID, SELFPAY | END 2024-06-04 23:59 | disposition home or self-care (01) | LOC: SPT 08:47 | PROVIDERS: PCP Family Medicine Adult Medicine; Visit Provider Nurse Practitioner | DX: M25.561 Pain in right knee (principal); M25.562 Pain in left knee | CPT/HCPCS: 97110; 97161 ==

== ENCOUNTER 2024-06-05 06:00 | Outpatient (RCR) | payer MEDICARE, MEDICAID, SELFPAY | END 2024-07-05 23:59 | disposition home or self-care (01) | LOC: SPT 06:00 | PROVIDERS: PCP Family Medicine Adult Medicine; Visit Provider Nurse Practitioner | DX: M25.561 Pain in right knee (principal); M25.562 Pain in left knee | CPT/HCPCS: 97110 ==

== ENCOUNTER 2024-07-06 06:00 | Outpatient (RCR) | payer MEDICARE, MEDICAID, SELFPAY | END 2024-08-04 23:59 | disposition home or self-care (01) | LOC: SPT 06:00 | PROVIDERS: PCP Family Medicine Adult Medicine; Visit Provider Nurse Practitioner | DX: M25.561 Pain in right knee (principal); M25.562 Pain in left knee | CPT/HCPCS: 97110 ==

== ENCOUNTER → 2024-07-18 09:48 | Outpatient (BNVA) | payer MEDICARE, MEDICAID, SELFPAY | PROVIDERS: PCP Family Medicine Adult Medicine; Visit Provider Nurse Practitioner | DX: M25.562 Pain in left knee (principal); G89.29 Other chronic pain; Z96.653 Presence of artificial knee joint, bilateral | CPT/HCPCS: 99213 ==

== ENCOUNTER 2024-09-12 15:22 | Emergency (ER) | payer MEDICARE, MEDICAID, SELFPAY ==
[2024-09-12 15:25] VITALS: BP 126/75; PULSE 101; RESP 18; TEMP 38.1; O2SAT 96; BMI 38.4
--- NOTE | 2024-09-12 15:39 | XR_ITS ---
WS: [id number] Portable AP upright chest, 09/12/2024 Clinical Data: Possible Sepsis Comparison: Portable chest, 06/09/2023 Findings: No nodules, masses or effusions are seen. The heart is normal. The pulmonary vascularity is not increased. No pneumonia or pneumothorax is seen. The aortic arch and descending thoracic aorta s how tortuosity. The diaphragms are flattened. XR/XR chest 1V portable [id number] Impression: Atherosclerosis and hyperinflation.
--- NOTE | 2024-09-12 15:44 | W.ED.NAVMDI ---
HPI - Nausea/Vomiting/Diarrhea General: Chief complaint: Nausea/Vomiting/Diarrhea Stated complaint: FEVER, N/V Time Seen by Provider: 09/12/24 15:24 Source: patient and EMS Mode of arrival: EMS Limitations: no limitations History of Present Illness: 69-year-old female states she has been having flulike symptoms over the last 2 to 3 days she states she has had nausea vomiting she also had fever body aches and slight cough. States that she had vomiting today that it worsen was unable tolerating p.o. she did get Zofran and route and feels improved she denies any pain anywhere. Associated nausea: Yes Associated symtoms: Reports nausea; Denies chest pain, dysuria or headache(s) Related Data Home Medications Medication Instructions Recorded Confirmed acetaminophen 650 mg 1,300 mg PO Q12H PRN Pain 06/09/23 09/12/24 tablet,extended release docusate sodium 50 mg capsule 50 mg PO DAILY PRN constipation 06/09/23 09/12/24 (Stool Softener) pantoprazole 40 mg tablet,delayed 40 mg PO BID 09/12/24 09/12/24 release Previous Rx's Medication Instructions Recorded oxybutynin chloride 5 mg tablet 5 mg PO BID #180 tabs 01/13/24 fluticasone propionate 50 1 spray intranasal DAILY PRN nasal 04/13/24 mcg/actuation nasal congestion 90 days #16 grams spray,suspension (Flonase Allergy Relief) lisinopril 20 mg tablet 20 mg PO DAILY #90 tabs 04/13/24 ondansetron 4 mg disintegrating 4 mg PO Q6H PRN nausea and 09/12/24 tablet vomiting #14 tabs Allergies Allergy/AdvReac Type Severity Reaction Status Date / Time adhesive Allergy ALGY-Bliste Verified 07/18/24 09:58 r oxycodone Allergy ADR-Anxiety Verified 07/18/24 09:58 Review of Systems Const: Reports: fever(s) and chills; Denies: body aches or change in appetite ENMT: Denies: throat pain or dental pain Card: Denies: chest pain Resp: Reports: non-productive cough; Denies: dyspnea GI: Reports: nausea and vomiting; Denies: abdominal pain or diarrhea : Denies: dysuria Musc: Denies: neck pain or back pain Skin/Breast: Denies: rash Neuro: Denies: headache(s) PFSH ED PFSH: Medical History Bilateral knee pain GERD (gastroesophageal reflux disease) Benign essential HTN Surgical History Previous section History of cholecystectomy History of hysterectomy Endometrial CA. 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 Physical Exam Const: COMMON NORMALS: no acute distress, patient oriented x3 and healthy appearing HENMT: COMMON NORMALS: normocephalic and atraumatic HEAD & SCALP: normocephalic and atraumatic Eye: COMMON NORMALS: conjunctivae normal CONJUNCTIVA: Yes conjunctivae normal Neck/C-Spine: COMMON NORMALS: full ROM and supple Chest: COMMONS NORMALS: normal inspection of the chest and normal palpation of entire chest wall Resp: COMMON NORMALS: normal respiratory effort, No retractions, No use of accessory muscles and clear to auscultation bilaterally AUSCULTATION: clear to auscultation bilaterally Cardio: COMMON NORMALS: regular rate and regular rhythm RATE: regular rate RHYTHM: regular rhythm OTHER: systolic murmur GI: COMMON NORMALS: Normal to inspection, nondistended, normoactive bowel sounds present, Soft to palpation, non-tender and no masses PALPATION: Yes Soft to palpation Extremity: COMMON NORMALS: normal to inspection and full ROM Neuro: COMMON NORMALS: patient oriented x3, moves all extremities and no focal motor deficits Psych: COMMON NORMALS: mental status grossly normal, Normal thought process present and cooperative THOUGHT PROCESS: Normal thought process present Skin: COMMON NORMALS: no rashes or lesions noted and no wounds GENERAL SKIN EXAM: no rashes or lesions noted Course Vital Signs: Vital signs: Vital Signs Temperature 100.5 F H 09/12/24 15:25 Pulse Rate 92 09/12/24 16:46 Respiratory Rate 18 09/12/24 15:25 Blood Pressure 142/74 09/12/24 16:46 Pulse Oximetry 93 09/12/24 16:46 Oxygen Delivery Me thod Room Air 09/12/24 16:46 MDM - Nausea/Vomiting/Diarrhea Medical Decision Making Patient presents here with vomiting along with fever cough likely viral syndrome she feels much improved here after Zofran blood works normal no signs of bacterial infection here she is able tolerate p.o. will prescribe her Zofran for home she is follow-up with PCP return if worsening. Medical Records I reviewed the patient's medical records. Lab Data I reviewed the patient's lab results. 09/12/24 15:08 09/12/24 15:08 Radiology Impressions Chest X-Ray 09/12/24 15:39 Impression: Atherosclerosis and hyperinflation. Laboratory Results WBC 6.19 10^3/uL (3.29-11.43) 09/12/24 15:08 RBC 4.80 10^6/uL (3.85-5.65) 09/12/24 15:08 Hgb 14.90 g/dL (11.27-16.99) 09/12/24 15:08 Hct 44.9 % (36-47) 09/12/24 15:08 MCV 93.5 fl (85-98) 09/12/24 15:08 MCH 31.0 pg (27-33) 09/12/24 15:08 MCHC 33.2 g/dL (30-55) 09/12/24 15:08 RDW 12.6 % (12.1-15.1) 09/12/24 15:08 Plt Count 210 10^3/cmm (157-399) 09/12/24 15:08 MPV 9.7 fL (7.4-10.4) 09/12/24 15:08 Neut % (Auto) 90.5 % 09/12/24 15:08 Lymph % (Auto) 5.8 % 09/12/24 15:08 [place] % (Auto) 1.9 % 09/12/24 15:08 Eos % (Auto) 1.3 % 09/12/24 15:08 Baso % (Auto) 0.2 % 09/12/24 15:08 Neut # (Auto) 5.60 10^3/uL (1.8-7.7) 09/12/24 15:08 Lymph # (Auto) 0.4 10^3/uL (0.8-4.8) L 09/12/24 15:08 [place] # (Auto) 0.1 10^3/uL (0.2-0.9) L 09/12/24 15:08 Eos # (Auto) 0.1 10^3/uL (0.0-0.8) 09/12/24 15:08 Baso # (Auto) 0.0 10^3/uL (0.0-0.1) 09/12/24 15:08 Nucleated RBC % (auto) 0 % 09/12/24 15:08 Nucleated RBCs # 0.0 /100WBC 09/12/24 15:08 Sodium 139 mmol/L (136-145) 09/12/24 15:08 Potassium 4.3 mmol/L (3.5-5.1) 09/12/24 15:08 Chloride 101 mmol/L (98-107) 09/12/24 15:08 Carbon Dioxide 25 mmol/L (22-29) 09/12/24 15:08 Anion Gap 17.3 (5-19) 09/12/24 15:08 BUN 17 mg/dL (8-23) 09/12/24 15:08 Creatinine 0.8 mg/dL (0.5-0.9) 09/12/24 15:08 GFR Calculation Not Reportable 09/12/24 15:08 Glucose 133 mg/dL (65-115) H 09/12/24 15:08 Calculated Osmolality 291 mOsm/kg (285-295) 09/12/24 15:08 Lactic Acid 2.2 mmol/L (0.5-2.2) 09/12/24 16:17 Calcium 8.8 mg/dL (8.5-10.5) 09/12/24 15:08 Total Bilirubin 0.6 mg/dL (0.15-1.2) 09/12/24 15:08 AST 24 U/L (0-32) 09/12/24 15:08 ALT 11 U/L (0-33) 09/12/24 15:08 Alkaline Phosphatase 155 U/L (35-105) H 09/12/24 15:08 Total Protein 7.0 g/dL (6.6-8.7) 09/12/24 15:08 Albumin 4.0 g/dL (3.5-5.2) 09/12/24 15:08 Globulin 3.0 g/dL (1.3-4.6) 09/12/24 15:08 Urine Color Yellow (Yellow) 09/12/24 16:05 Urine Appearance Clear (CLEAR) 09/12/24 16:05 Urine pH 6.5 (5-7) 09/12/24 16:05 Ur Specific [place] 1.024 (1.005-1.030) 09/12/24 16:05 Urine Protein Trace (Negative) A 09/12/24 16:05 Urine Glucose (UA) Negative (Normal) 09/12/24 16:05 Urine Ketones 1+ (Negative) H 09/12/24 16:05 Urine Blood Negative (Negative) 09/12/24 16:05 Urine Nitrate Negative (Negative) 09/12/24 16:05 Urine Bilirubin Negative (Negative) 09/12/24 16:05 Urine Urobilinogen 1.0 mg/dL (Negative) 09/12/24 16:05 Ur Leukocyte Esterase 1+ (Negative) A 09/12/24 16:05 Urine RBC 3-5 /hpf (0-2) 09/12/24 16:05 Urine WBC 6-10 /hpf (0-5) 09/12/24 16:05 Ur Squamous Epith Cells 6-10 /hpf (0-5) 09/12/24 16:05 Amorphous Sediment Not Reportable 09/12/24 16:05 Urine Bacteria None seen /hpf (NONE) 09/12/24 16:05 Hyaline Casts 0.81 /lpf 09/12/24 16:05 Influenza Type A Ag Negative (Negative) 09/12/24 15:39 Influenza Type B Ag Negative (Negative) 09/12/24 15:39 SARS-CoV-2 Ag (Rapid) negative (Negative) 09/12/24 15:39 All radiology interpretation(s) finalized by discharge EKG Data EKG 1: I personally reviewed and interpreted this EKG as follows: EKG interpretation date: 09/12/24 EKG interpretation time: 15:48 Interpretation: nsr hr [address] elevation qrs 84 qtc 410 Discharge Plan Discharge Patient Disposition: Home Clinical Impression: Vomiting, Viral syndrome Condition: Stable Prescriptions: New ondansetron 4 mg tablet,disintegrating 4 mg PO Q6H PRN (Reason: nausea and vomiting) Qty: 14 0RF No Action oxybutynin chloride 5 mg tablet 5 mg PO BID Qty: 180 1RF lisinopril 20 mg tablet 20 mg PO DAILY Qty: 90 1RF fluticasone propionate [Flonase Allergy Relief] 50 mcg/actuation spray,suspension 1 spray intranasal DAILY PRN (Reason: nasal congestion) 90 Days Qty: 16 1RF Rx Instructions: administer into each nostril Dispense 90 day supply pantoprazole 40 mg tablet,delayed release (DR/EC) 40 mg PO BID acetaminophen 650 mg Tablet Extended Release 1,300 mg PO Q12H PRN (Reason: Pain) Stool Softener 50 mg Capsule 50 mg PO DAILY PRN (Reason: constipation ) Discharge Orders: Discharge ED (Routine); Ordered 09/12/24 Ordered By: Alicia Zamorano Referrals: Cuauhtemoc Baxter MD [Primary Care Provider] - 4-7 days Discharge Diet: Advance as tolerated Discharge Activity: Resume usual activity Patient Instructions: Acute Nausea and Vomiting (ED), Viral Syndrome (ED) Coding Level of Care Code ED Training And Quality Manager for [facility]
[2024-09-12 15:46] LABS: Basophils % 0.2 %; Eosinophils # 0.1 10^3/uL (0.0-0.8); Eosinophils % 1.3 %; Hematocrit 44.9 % (36-47); Lymphocytes # 0.4 10^3/uL (0.8-4.8); Lymphocytes % 5.8 %; Mean Corpuscular HGB Conc 33.2 g/dL (30-55); Mean Corpuscular Volume 93.5 fl (85-98); Mean Platelet Volume 9.7 fL (7.4-10.4); Monocytes # 0.1 10^3/uL (0.2-0.9); Monocytes % 1.9 %; Neutrophils % 90.5 %; Nucleated Red Blood Cells % 0 %; Platelet Count 210 10^3/cmm (157-399); Red Cell Distribution Width 12.6 % (12.1-15.1); White Blood Count 6.19 10^3/uL (3.29-11.43)
[2024-09-12 15:47] VITALS: BP 126/75; PULSE 101; O2SAT 95
[2024-09-12] MEDS: sodium chloride 0.9% 2,857.62 ML 2857.62 ML IV (15:48)
--- NOTE | 2024-09-12 15:48 | ECG_ITS ---
[facility] Date: 2024-09-12 Pat Name: Sarah Perry Department: Room: Gender: Female Health Record Technician: : 1955 Requested By: Alicia Zamorano Order Number: [id number] Claude MD: Deena Mckee M.D. Measurements Intervals [place] Rate: 93 P: 19 AR: 191 QRS: -12 QRSD: 84 T: 11 QT: 359 QTc: 447 Interpretive Statements SINUS RHYTHM POSSIBLE LEFT ATRIAL ENLARGEMENT [-0.1mV P-WAVE IN V1/V2] LOW QRS VOLTAGE IN PRECORDIAL LEADS [QRS DEFLECTION < 1.0 mV IN CHEST LEADS] POSSIBLE ANTERIOR MYOCARDIAL INFARCTION , PROBABLY OLD [30 ms Q WAVE IN V3/V4, OR R < 0.2 mV IN V4] Compared to ECG 06/09/2023 09:28:12 No significant changes Electronically Signed On 09-12-2024 17:41:54 DEFENCE FORCE SENIOR OFFICER by Deena Mckee M.D. [email or web address]
[2024-09-12] MEDS: acetaminophen 500 mg Tablet 1000 MG PO (15:55)
[2024-09-12 16:02] LABS: Alanine Aminotransferase 11 U/L (0-33); Alkaline Phosphatase 155 U/L (35-105); Anion Gap 17.3 (5-19); Aspartate Amino Transferase 24 U/L (0-32); Blood Urea Nitrogen 17 mg/dL (8-23); Calcium 8.8 mg/dL (8.5-10.5); Carbon Dioxide 25 mmol/L (22-29); Chloride 101 mmol/L (98-107); Creatinine Clr Calc Pharmacy 69.4041; Glucose 133 mg/dL (65-115); Osmolality Calculated 291 mOsm/kg (285-295); Potassium 4.3 mmol/L (3.5-5.1); Sodium 139 mmol/L (136-145); Total Bilirubin 0.6 mg/dL (0.15-1.2)
[2024-09-12 16:14] LABS: Bilirubin Urine Negative (Negative); Blood Urine Negative (Negative); Glucose Urine UA Negative (Normal); Ketones Urine 1+ (Negative); Leukocyte Esterase Urine 1+ (Negative); Nitrate Urine Negative (Negative); Protein Urine Trace (Negative); Specific Gravity, Urine 1.024 (1.005-1.030); Urine Appearance Clear (CLEAR); Urine Color Yellow (Yellow); pH Urine 6.5 (5-7)
[2024-09-12 16:16] LABS: Add Urine Microscopic? YES; Bacteria Urine None Seen /hpf; Hyaline Casts Urine 0.81 /lpf
[2024-09-12 16:17] LABS: SARS Covid-2 Antigen negative (Negative)
[2024-09-12 16:18] LABS: Influenza A by IFA Negative (Negative); Influenza B by IFA Negative (Negative)
[2024-09-12 16:26] LABS: Add Urine Culture? No
[2024-09-12 16:46] VITALS: BP 142/74; PULSE 92; O2SAT 93
[2024-09-12 16:50] LABS: Lactic Sepsis W/Reflex 2.2 mmol/L (0.5-2.2)
[2024-09-12 17:25] VITALS: BP 142/74; PULSE 90; O2SAT 92
[2024-09-12 18:09] LABS: Reflex Lactate Order REFLEX LACTIC ORDERD
[2024-09-12 18:40] LABS: Adenovirus Not Detected (NOT DETECT); Chlamydia Pneumoniae Not Detected (NOT DETECT); Coronavirus 229E,HKU1,NL63,OC4 Not Detected (NOT DETECT); Human Metapneumovirus Not Detected (NOT DETECT); Human Rhinovirus/Enterovirus Not Detected (NOT DETECT); Influenza A Not Detected (NOT DETECT); Influenza A H1 Not Detected (NOT DETECT); Influenza A H1-2009 Not Detected (NOT DETECT); Influenza A H3 Not Detected (NOT DETECT); Influenza B Not Detected (NOT DETECT); Mycoplasma Pneumoniae Not Detected (NOT DETECT); Parainfluenza Virus Type 1 Not Detected (NOT DETECT); Parainfluenza Virus Type 2 Not Detected (NOT DETECT); Parainfluenza Virus Type 3 Not Detected (NOT DETECT); Parainfluenza Virus Type 4 Not Detected (NOT DETECT); Respiratory Syncytial Virus A Not Detected (NOT DETECT); Respiratory Syncytial Virus B Not Detected (NOT DETECT); SARS-COV-2 Not Detected (NOT DETECT)
== END 2024-09-12 17:31 | disposition home or self-care (01) ==
PROVIDERS: Emergency Provider Emergency Medicine; PCP Family Medicine Adult Medicine
DX: R11.2 Nausea with vomiting, unspecified (principal); B34.9 Viral infection, unspecified; Z11.52 Encounter for screening for COVID-19
CPT/HCPCS: 36415; 71045; 80053; 81001; 83605; 85025; 87040; 87426; 87486; 87581; 87633; 87804; 93005; 99285; J7030

== ENCOUNTER 2024-10-29 12:23 | Outpatient (CLI) | payer MEDICARE, MEDICAID, SELFPAY ==
--- NOTE | 2024-10-29 12:26 | USCV_ITS ---
Sarah Perry Age: 69 Gender: F : 1955 Exam Date: 10/29/2024 12:51 Ordering Phys: Lalita Browne YOUTH TEACHER YOUTH TEACHER Technologist: CT [place]am [place] [facility] [place]ication: Murmur BP: 133 / 81 HR: 64 Rhythm: Sinus Technical Quality: Adequate MEASUREMENTS (Male / Female) Normal Values 2D ECHO LVOT Diameter 2.0 cm LV Ejection Fraction MOD 4C 65.6 % LV Ejection Fraction MOD 2C 70.7 % LV Ejection Fraction 2C AL 70.8 % LA Diameter 3.7 cm RA Systolic Volume 4C AL 47.4 ml RA Systolic Volume 4C MOD 46.4 ml LA Sys Volume AL 59.1 cm cubed LA Sys Volume Index AL 28.3 cm cubed/m squared Aorta at Sinotubular Diameter 2.2 cm M-MODE LA Ao Ratio MM 1.7 AV Cusp Separation MM 1.5 cm DOPPLER AV Peak Velocity 294.0 cm/s LVOT Peak Velocity 127.0 cm/s AV Area Cont Eq vti 1.7 cm squared AV Area Cont Eq pk 1.4 cm squared MV Peak Velocity 148.0 cm/s MV Area PHT 2.6 cm squared Mitral E to A Ratio 1.3 TR Peak Velocity 273.5 cm/s TR Peak Gradient 29.9 mmHg TR Mean Velocity 190.0 cm/s TR Mean Gradient 16.2 mmHg TR Velocity Time Integral 78.6 cm TV Peak E Velocity 90.0 cm/s PV Peak Velocity 147.5 cm/s FINDINGS Left Ventricle Left ventricle is normal in size. LV systolic function is normal with EF of 60-65%. No regional wall motion abnormalities. Right Ventricle Normal in size and function Right Atrium Normal in size Left Atrium Normal in size Mitral Valve Structurally normal mitral valve. Mild mitral regurgitation Aortic Valve Aortic valve is thickened. Aortic valve area is 1.67cm2 and mean gradient across aortic valve of 16mmHg. This is consistent with mild aortic stenosis Tricuspid Valve Mild tricuspid regurgitation. Pulmonary artery systolic pressure is normal Pulmonic Valve Not well visualized Pericardium Normal Aorta Normal in size IVC Not well visualized CONCLUSIONS LV systolic function is normal with EF of 60-65% Mild mitral regurgitation Mild aortic stenosis Mild tricuspid regurgitation No comparison studies are available. Roberto Lester MD (Electronically Signed) Final Date: 10 November 2024 21:04 S
== END 2024-10-29 12:24 | disposition home or self-care (01) ==
PROVIDERS: PCP Family Medicine Adult Medicine; Visit Provider Nurse Practitioner Family
DX: R01.1 Cardiac murmur, unspecified (principal); I34.0 Nonrheumatic mitral (valve) insufficiency; I35.8 Other nonrheumatic aortic valve disorders; I07.1 Rheumatic tricuspid insufficiency; I35.0 Nonrheumatic aortic (valve) stenosis
CPT/HCPCS: 93306